=== PATIENT | male | born 1980 | race Caucasian/White ===

== ENCOUNTER 2019-01-01 08:20 | Day surgery (SDC) | payer OTHER ==
[~2019-01-01] VITALS: Ht 180.3 cm; Wt 122.5 kg
[~2019-01-01 08:20] MED LIST: 0.9% SODIUM CHLORIDE 10 ML SYRINGE IVP PRN; METOPROLOL TARTRATE 50 MG TABLET PO PRN
[2019-01-01] MEDS ORDERED: METO50 PO (09:18)
[2019-01-01] MEDS ORDERED: METO25XL PO (09:26)
[2019-01-01 09:37] LABS: ANION GAP 11 mmol/L (8-16); CALCIUM, TOTAL 8.8 mg/dL (8.8-10.5); CARBON DIOXIDE 25 mmol/L (22-29); CHLORIDE 105 mmol/L (98-107); CREATININE 1.02 mg/dL (0.60-1.30); GLOMERULAR FILTR. RATE CALC > 60 mL/min (>60); GLUCOSE,RANDOM 86 mg/dL (70-110); POTASSIUM 4.3 mmol/L (3.5-5.1); SODIUM SERUM 141 mmol/L (136-145); UREA NITROGEN, BLOOD 14 mg/dL (7-18)
[2019-01-01] MEDS ORDERED: METOPROLOL TARTRATE 5 MG/5 ML VIAL ONE (10:06)
[2019-01-01] MEDS ORDERED: NITROGLYCERIN 400 MCG/SUBLINGUAL SPRAY 4.9 GM BOTTLE SL ONE ×2 (10:06→10:22)
[2019-01-01] MEDS ORDERED: IOVERSOL 350 MG/ML 150 ML VIAL ONE (10:11)
== END 2019-01-01 11:20 | disposition home or self-care (01) ==
LOC: SURGERY 08:20 → EDSTATUS 10:00 → SURGERY 11:20
PROVIDERS: ATTEND Internal Medicine Cardiovascular Disease
DX: R07.9 Chest pain, unspecified (principal)
CPT/HCPCS: 36415; 75574; 80048; 93005; Q9967; J3490